=== PATIENT | male | born 1940 | race Caucasian/White ===

== ENCOUNTER 2023-12-15 20:22 | Outpatient (CLI) | payer MEDICARE, BC, SELFPAY | END 2023-12-15 20:23 | disposition home or self-care (01) | LOC: AMB 01-01 14:13 | PROVIDERS: PCP Family Medicine; Visit Provider Emergency Medicine | DX: F91.9 Conduct disorder, unspecified (principal) | CPT/HCPCS: A0425; A0427 ==